=== PATIENT | male | born 1960 ===

== ENCOUNTER → 2018-01-16 | Emergency (ER) | payer OTHER ==
[~2018-01-16] VITALS: Ht 195.6 cm; Wt 99.8 kg
[~2018-01-16] MED LIST: CIPRO500 MG PO; FLAGYL500MG PO; KEFLEX500 MG PO; ULTRACET PO; URIN D.S. TABL1 EACH PO; ZANTAC150 MG PO
== END | disposition home or self-care (01) ==
LOC: ER 15:11
DX: K57.92 Diverticulitis of intestine, part unspecified, without perforation or abscess without bleeding (principal)